=== PATIENT | female | born 1985 | race Caucasian/White ===

== ENCOUNTER 2017-10-14 20:27 | Emergency (ER) | payer BC ==
--- NOTE | 2017-10-14 20:41 | UC ---
Dizzy HPI HPI Summary: The patient is a 32 y/o F presenting to [facility] c/o blurred vision and slurred speech with dizziness and lightheadedness at approximately 19:45 tonight. 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 Her left eye was alright, but then she was going to talk to someone else she was working with and was unable to speak correctly. She did not have any other weakness or numbness, CP, or SOB , but she felt anxious. Her symptoms only last minutes as her vision and speech are back to normal. She has not had previous episodes with these symptoms. She has hx of anxiety. She does not take any medications. - History Of Current Complaint Stated Complaint: BLURRED SPEECH,VISION BLURRED Time Seen by Provider: 10/14/17 20:34 Hx Obtained From: Patient Onset/Duration: Sudden Onset, Lasting Minutes, Resolved Timing: Minutes Pain Scale Used: 0-10 Numeric Character: Lightheaded, Dizzy Aggravating Factor(s): Nothing Alleviating Factor(s): Nothing Associated Signs And Symptoms: Positive: Negative - weakness, numbness, Visual Changes - blurred vision. Negative: Chest Pain, SOB - Allergies/Home Medications Allergies/Adverse Reactions: Allergies Allergy/AdvReac Type Severity Reaction Status Date / Time No Known Allergies Allergy Verified 10/14/17 20:43 Home Medications: Home Medications NK [No Home Medications Reported] 10/14/17 [History Confirmed 10/14/17] PMH/Surg Hx/FS Hx/Imm Hx Other Endocrine History: NEGATIVE: diabetes Other Cardiovascular History: NEGATIVE: HTN Psychological History: Anxiety - Family History Known Family History: Positive: Diabetes Review of Systems Eyes: Blurred Vision - right eye Respiratory: Other - NEGATIVE: SOB Cardiovascular: Other - NEGATIVE: CP Neurological: Other - POSITIVE: slurred speech, dizzy, lightheaded; NEGATIVE: weakness, numbness Psychological: Anxious All Other Systems Reviewed And Are Negative: Yes Physical Exam - Summary Physical Exam Summary: General: well-appearing, no pain distress Skin: warm, color reflects adequate perfusion, dry Head: normal Eyes: EOMI, MUMTAZ ENT: normal Neck: supple, nontender Respiratory: CTA, breath sounds present Cardiovascular: RRR Abdomen: soft, nontender Bowel: present Musculoskeletal: normal, strength/ROM intact Neurological: sensory/motor intact, A&O x3 Psychological: affect/mood appropriate Triage Information Reviewed: Yes Vital Signs Reviewed: Yes Diagnostics - EKG EKG Comments: 20:29 Cardiac Rate: NL - 96 BPM Cardiac Rhythm: Sinus: Normal Ectopy: None ST Segment: Normal Dizzy Course/Dx - Course Course Of Treatment: Medications reviewed. Allergies noted. fs bs 91. TIME OF ONSET OF RIGHT SIDED BLURRED VISION AND DIFFICULTY OF SPEECH 19:45. DURATION OF SX 15-20 MINUTES. NO NEUROLOGIC DEFICIT IN CLINIC. TRANSFERED BY AMBULANCE TO EMERGENCY DEPARTMENT. - Differential Dx/Diagnosis Provider Diagnoses: TRANSIENT BLURRED VISION AND EXPRESSIVE APHASIA Discharge - Sign-Out/Discharge Documenting (check all that apply): Patient Departure - Patient will be transferred to [facility]. - Discharge Plan Condition: Stable Disposition: TRANS HIGHER LVL OF CARE FAC Referrals: Bernard Decker MD [Primary Care Provider] - - Billing Disposition and Condition Condition: STABLE Disposition: Trans Higher Lvl of Care Fac Attestation Statement Scribe Attestation: This is clay Purcell documenting for attending Dr. Polo Sylvester MD. User Type: Provider with Scribe Provider Attestation: The documentation recorded by the scribe accurately reflects the service I personally performed and the decisions made by me.
[2017-10-14 20:43] VITALS: BP 147/85
== END 2017-10-14 21:00 | disposition short-term general hospital (02) ==
LOC: UCEAST 20:27
DX: H53.8 Other visual disturbances (principal); R47.01 Aphasia; R47.81 Slurred speech; R42 Dizziness and giddiness; R20.0 Anesthesia of skin
CPT/HCPCS: 93005; 99203; G0463

== ENCOUNTER 2017-10-14 21:18 | Observation (INO) | payer BC ==
--- NOTE | 2017-10-14 22:31 | ED ---
Complex/Multi-Sys Presentation - HPI Summary HPI Summary: This is clay Campos documenting for attending Ace Pierson MD. This patient is a 32 year old F BIBA to [facility] with a chief complaint of right eye peripheral blurry vision that began at 1930. 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 All sx resolved after 45 minutes. The patient rates the pain 0/10 in severity. Patient reports light headedness. Patient denies BENNETT and trouble ambulating. When these occurred she saw the nurse at her work and she was given something to raise her blood sugar. No similar sx in the past. LNMP was one month ago and should begin in 3 days. Pt believes she had possible low blood glucose but no hx of DM. - History Of Current Complaint Chief Complaint: EDAltMentalStatus Time Seen by Provider: 10/14/17 21:30 Hx Obtained From: Patient Onset/Duration: Lasting Minutes - 45, Resolved Timing: Intermittent, Lasting: - 45 min Severity Currently: None Severity Initially: Mild Associated Signs And Symptoms: Positive: Other - blurred vision and trouble speaking - Allergies/Home Medications Allergies/Adverse Reactions: Allergies Allergy/AdvReac Type Severity Reaction Status Date / Time sulfamethoxazole Allergy Hives Verified 10/14/17 21:39 [From Bactrim] trimethoprim [From Bactrim] Allergy Hives Verified 10/14/17 21:39 PMH/Surg Hx/FS Hx/Imm Hx Endocrine/Hematology History: Denies: Hx Blood Transfusions, Hx Diabetes Cardiovascular History: Denies: Hx Auto Implanted Cardiovert Defib, Hx Cardiomegaly, Hx Deep Vein Thrombosis Respiratory History: Denies: Hx Chronic Obstructive Pulmonary Disease (COPD), Hx Pneumonia History: Denies: Hx Benign Prostatic Hyperplasia Sensory History: Denies: Hx Legally Blind, Hx Deafness Opthamlomology History: Denies: Hx Legally Blind Psychiatric History: Denies: Hx Community Mental Health Tx Infectious Disease History: Yes Infectious Disease History: Denies: Traveled Outside the [place] in Last 30 Days - Family History Known Family History: Positive: Diabetes - Social History Occupation: Employed Full-time Alcohol Use: None Substance Use Type: Reports: None Smoking Status (MU): Never Smoked Tobacco Review of Systems Positive: Blurred Vision - right eye Positive: Other - "thick tongue" Neurological: Negative - trouble ambulating , Other - light headedness Positive: Slurred Speech - w/ aphasia . Negative: Headache All Other Systems Reviewed And Are Negative: Yes Physical Exam - Summary Physical Exam Summary: VITAL SIGNS: Reviewed. GENERAL: Patient is a well-developed and nourished FEMALE who is lying comfortable in the stretcher. Patient is not in any acute respiratory distress. HEAD AND FACE: No signs of trauma. No ecchymosis, hematomas or skull depressions. No sinus tenderness. EYES: PERRLA, EOMI x 2, No injected conjunctiva, no nystagmus. EARS: Hearing grossly intact. Ear canals and tympanic membranes are within normal limits. MOUTH: Oropharynx within normal limits. NECK: Supple, trachea is midline, no adenopathy, no JVD, no carotid bruit, no c- spine tenderness, neck with full ROM. CHEST: Symmetric, no tenderness at palpation LUNGS: Clear to auscultation bilaterally. No wheezing or crackles. CVS: Regular rate and rhythm, S1 and S2 present, no murmurs or gallops appreciated. ABDOMEN: Soft, non-tender. No signs of distention. No rebound no guarding, and no masses palpated. Bowel sounds are normal. EXTREMITIES: FROM in all major joints, no edema, no cyanosis or clubbing. NEURO: Alert and oriented x 3. No acute neurological deficits. Speech is normal and follows commands. SKIN: Dry and warm Triage Information Reviewed: Yes Vital Signs On Initial Exam: Initial Vitals Temp Pulse Resp BP Pulse Ox 98.9 F 89 16 128/86 100 10/14/17 21:22 10/14/17 21:22 10/14/17 21:22 10/14/17 21:22 10/14/17 21:22 Vital Signs Reviewed: Yes Diagnostics - Vital Signs Vital Signs Temp Pulse Resp BP Pulse Ox 10/14/17 21:55 94 16 119/69 100 10/14/17 21:25 93 15 128/86 100 10/14/17 21:23 96 100 10/14/17 21:22 98.9 F 89 16 128/86 100 - Laboratory Result Diagrams: 10/14/17 22:29 10/14/17 22:29 Lab Statement: Any lab studies that have been ordered have been reviewed, and results considered in the medical decision making process. - CT CTA head CT Interpretation Completed By: Radiologist - normal CT head ED physician has reviewed this radiology report. CT head CT Interpretation Completed By: Radiologist - normal CT head ED physician has reviewed this radiology report. - EKG 22:28 Cardiac Rate: Tachycardia EKG Rhythm: Sinus Tachycardia - at 102 BPM EKG Interpretation: Normal axis. Normal interval. No ischemic changes Complex Multi-Symp Course/Dx Assessment/Plan: This patient is a 32 year old F BIBA to [facility] with a chief complaint of right eye peripheral blurry vision that began at 1930. 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 All sx resolved after 45 minutes. The patient rates the pain 0/10 in severity. Patient reports light headedness. Patient denies BENNETT and trouble ambulating. When these occurred she saw the nurse at her work and she was given something to raise her blood sugar. No similar sx in the past. LNMP was one month ago and should begin in 3 days. Pt believes she had possible low blood glucose but no hx of DM. An EKG reveals sinus tachycardia. CT Head reveals, per radiologist, normal CT head. Test results with no significant abnormalities. UA obtained. In the ED course the patient was given ASA. We discussed patient care with Dr. Spaulding and they have accepted the patient for admission. Patient will be admitted for a TIA. The patient is agreeable with this plan. - Diagnoses Provider Diagnoses: TIA (transient ischemic attack) - Physician Notifications Discussed Care Of Patient With: Melida Spaulding Time Discussed With Above Provider: 12:55 Instructed by Provider To: Admit As Inpatient Discharge - Sign-Out/Discharge Documenting (check all that apply): Patient Departure - admitted - Discharge Plan Condition: Fair Disposition: ADMITTED TO [facility] Referrals: Bernard Decker MD [Primary Care Provider] - Attestation Statement Scribe Attestation: This is clay Campos documenting for attending Ace Pierson MD. User Type: Provider with Scribe Provider Attestation: The documentation recorded by the scribe accurately reflects the service I personally performed and the decisions made by me.
[2017-10-14 22:42] LABS: ABS Basophils 0.1 10^3/ul (0-0.2); ABS Eosinophils 0.4 10^3/ul (0-0.6); ABS Lymphocytes 2.7 10^3/ul (1.0-4.8); ABS Monocytes 0.6 10^3/ul (0-0.8); ABS Nucleated RBC 0 10^3/ul; Eosinophil % 4.4 % (0-6); Hematocrit 40 % (35-47); Hemoglobin 13.5 g/dl (12.0-16.0); Mean Corpuscular HGB Conc 34 g/dl (31-36); Mean Corpuscular Hemoglobin 31 pg (27-31); Mean Corpuscular Volume 90 fL (80-97); Nucleated Red Blood Cells % 0; Platelet Count 399 10^3/ul (150-450); Red Blood Count 4.41 10^6/ul (4.00-5.40); Red Cell Distribution Width 13 % (10.5-15); White Blood Count 8.7 10^3/ul (3.5-10.8)
[2017-10-14 22:48] LABS: Urine Appearance Clear; Urine Blood Negative (Negative); Urine Color Yellow; Urine Ketones Negative (Negative); Urine Protein Negative (Negative); Urine Red Blood Cell Trace(0-2/hpf) (Absent); Urine Specific Gravity 1.009 (1.010-1.030); Urine Urobilinogen Negative (Negative); Urine White Blood Cell Trace(0-5/hpf) (Absent)
[2017-10-14 22:52] LABS: INR 1.02 (0.77-1.02)
[2017-10-14 23:00] LABS: EGFR Non-African American 97.6 (>60)
[2017-10-14] MEDS ORDERED: Iohexol 350* (CONTRAST) 500 ML MDV IV ONE (23:20)
--- NOTE | 2017-10-15 00:46 | RAD ---
EXAM: CT Angiography Head With Intravenous Contrast CLINICAL HISTORY: 32 years old, female; Signs and symptoms; Speech disturbance and weakness; Slurred speech; Additional info: TIA TECHNIQUE: Axial computed tomographic angiography images of the head with intravenous contrast using CT angiography protocol. 3D and MIP reconstructed images were created and reviewed. COMPARISON: No relevant prior studies available. FINDINGS: Right internal carotid artery: No acute findings. Intracranial segment is patent with no significant stenosis. No aneurysm. Right anterior cerebral artery: Unremarkable. No occlusion or significant stenosis. No aneurysm. Right middle cerebral artery: Unremarkable. No occlusion or significant stenosis. No aneurysm. Right posterior cerebral artery: Unremarkable. No occlusion or significant stenosis. No aneurysm. Right vertebral artery: Unremarkable as visualized. Left internal carotid artery: No acute findings. Intracranial segment is patent with no significant stenosis. No aneurysm. Left anterior cerebral artery: Unremarkable. No occlusion or significant stenosis. No aneurysm. Left middle cerebral artery: Unremarkable. No occlusion or significant stenosis. No aneurysm. Left posterior cerebral artery: Unremarkable. No occlusion or significant stenosis. No aneurysm. Left vertebral artery: Unremarkable as visualized. Basilar artery: Unremarkable. No occlusion or significant stenosis. No aneurysm. IMPRESSION: Normal head CTA. EXAM: CT Angiography Neck With Intravenous Contrast CLINICAL HISTORY: 32 years old, female; Signs and symptoms; Speech disturbance and weakness; Slurred speech; Additional info: TIA TECHNIQUE: Axial computed tomographic angiography images of the neck with intravenous contrast using CT angiography protocol. 3D and MIP reconstructed images were created and reviewed. COMPARISON: No relevant prior studies available. FINDINGS: VASCULATURE: Right common carotid artery: Unremarkable. No significant stenosis. No dissection or occlusion. Right internal carotid artery: Unremarkable. Extracranial segment is patent with no significant stenosis. No dissection or occlusion. Right external carotid artery: Unremarkable. No occlusion. Right vertebral artery: Unremarkable. No significant stenosis. No dissection or occlusion. Left common carotid artery: Unremarkable. No significant stenosis. No dissection or occlusion. Left internal carotid artery: Unremarkable. Extracranial segment is patent with no significant stenosis. No dissection or occlusion. Left external carotid artery: Unremarkable. No occlusion. Left vertebral artery: Unremarkable. No significant stenosis. No dissection or occlusion. NECK: Bones/joints: No acute fracture. No dislocation. Soft tissues: Unremarkable as visualized. No mass. CAROTID STENOSIS REFERENCE USING NASCET CRITERIA: % ICA stenosis = (1 - narrowest ICA diameter/diameter of distal cervical ICA) x 100. Mild - <50% stenosis. Moderate - 50-69% stenosis. Severe - 70-94% stenosis. Near occlusion - 95-99% stenosis. Occluded - 100% stenosis. IMPRESSION: Normal neck CTA. I have reviewed the images and the accompanying report and agree with the findings. Additionally the left lobe of the thyroid demonstrates a hypodense nodule in the lower pole. The lung apices demonstrate no focal nodules. Scattered lymph nodes are noted along the soft tissues of the neck. Images of the CTA of the head was reviewed and I essentially agree with the report provided above.
[2017-10-15] MEDS ORDERED: Aspirin TAB* 325 MG PO ONE (00:54)
--- NOTE | 2017-10-15 03:36 | HP ---
CC: Dr. Bernard Decker* HISTORY AND PHYSICAL: DATE OF ADMISSION: 10/15/17 PRIMARY CARE PROVIDER: To be established with Dr. Bernard Decker. CHIEF COMPLAINT: Difficulty with speech. HISTORY OF PRESENT ILLNESS: Ms. Johnston is a 32-year-old female who has a history of morbid obesity with a BMI of greater than 50, who presents to the emergency room with complaints of blurry vision and difficult speech. 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 She states the left eye was completely fine when she closed her right eye. The patient states that she had like a crescent-shaped area of blurriness in the peripheral vision. She states that she had LASIK surgery in January 2017 and thought perhaps it was just related to the dry eyes. She tried some eyedrops, initially noted some slight improvement, but then the blurry vision came back. The patient then states that when she was talking, she noted that her words were coming out jumbled. The words themselves were not slurred, though when she tried to put sentences together, the words were out of order. The patient then began to feel anxious. She states that when she feels anxious , she will text with her mom, which typically calms her down. When trying to text her mom, she noted that the same thing was happening with her words where they were out of order. The patient found a nurse to check her vital signs. Her blood pressure was reportedly good at 122/65. She thought perhaps it was related to hypoglycemia, so the nurse gave her some Ensure to drink. The patient then was able to walk without any issues to urgent care. She did feel mildly lightheaded, but she also states that she was feeling quite anxious by this time. The patient states that the onset of symptoms was around 7:30 p.m. She believes the symptoms in total lasted for about 45 minutes. At this point, she is completely back to normal. PAST MEDICAL HISTORY: Anxiety/depression. PAST SURGICAL HISTORY: LASIK. MEDICATIONS: None. ALLERGIES: BACTRIM. FAMILY HISTORY: Mom is living. She is 61, has a history of hyperlipidemia and psoriasis. Dad is also living. He is 59, he has a history of hypertension, hyperlipidemia, and trigeminal neuralgia. SOCIAL HISTORY: The patient is a nonsmoker. She does not drink alcohol. She does not use recreational drugs. 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 She is not . She has no children. Her dad, Tyrone, is her healthcare proxy. REVIEW OF SYSTEMS: A complete 11-system review of systems is obtained. Pertinent positives and negatives are as per HPI and otherwise negative. PHYSICAL EXAMINATION GENERAL: The patient is a well-developed, morbidly obese, young female, seen sitting up in the stretcher, in no acute distress. VITAL SIGNS: Blood pressure 117/71, pulse 103, respirations 19, temp 98.9, O2 sat 97% on room air. HEENT: Pupils are equal and round. Extraocular muscles are intact. Oropharynx is clear. Oral mucosa is moist. NECK: There is no submandibular, cervical, or supraclavicular adenopathy. Thyroid is not enlarged. No thyroid nodules are noted. PULMONARY: Lungs are clear to auscultation bilaterally. CARDIAC: Normal S1, S2. Regular rate and rhythm. I do not appreciate any murmurs. There is no lower extremity edema. ABDOMEN: Bowel sounds are present. Abdomen is obese, soft, nontender, and nondistended. MUSCULOSKELETAL: There is no cyanosis or clubbing of the digits. There is full active range of motion of all 4 extremities. SKIN: Warm and dry. There are no rashes. NEUROLOGIC: Cranial nerves II through XII are grossly intact. Sensation is intact to light touch throughout. Strength is 5/5 and symmetric in both upper and lower extremities bilaterally. The patient's speech is clear and fluent. The patient is able to ambulate with a steady fluid gait. PSYCH: The patient is alert. She is oriented x3. Affect appears appropriate. DIAGNOSTIC STUDIES/LAB DATA: Labs: WBC 8.7, hemoglobin 13.5, hematocrit 40, platelets 399. INR 1.02. Sodium 136, potassium 3.6, chloride 105, CO2 of 24, BUN 14, creatinine 0.7, glucose 84, calcium 8.8. Bilirubin 0.4, AST 19, ALT 21 , alk phos 93. Troponin 0, albumin 4.3. Urinalysis reveals specific gravity of 1.009 and trace leukocyte esterase. EKG reveals normal sinus rhythm without any acute ST-T wave abnormality. CTA head and neck reported to be normal. ASSESSMENT AND PLAN: Ms. Johnston is a 32-year-old morbidly obese female with only a history of anxiety and depression, who presents to the emergency room with complaints of sudden onset of blurry vision via the right eye and aphasia. 1. Possible transient ischemic attack. The patient's symptoms of blurry vision and aphasia could represent transient ischemic attack; however, the patient is quite young for this. The patient's vision only being affected by the right eye seems unlikely to be secondary to transient ischemic attack, however at this point the patient will be admitted and evaluated for such condition. The patient did not get a plain CT of the brain prior to her CTA head and neck. This will be obtained 6 hours after the CTA, which will be about 6:00 this morning. This is due to the fact that the patient had contrast. The patient will have a lipid panel and hemoglobin A1c obtained in the morning. She will continue on a baby aspirin for now. I will touch base with Neurology later this morning to ask about obtaining an MRI and to have a consultation performed. Of note, the patient's blood sugar was only 84 in the emergency room. She does state that she had an Ensure around 7:30 to 8:00 p.m. I would expect perhaps this would have been higher. Perhaps she was hypoglycemic though when she arrived her urgent care, her blood sugar was 91 at that point. The blood sugar of 91 makes hypoglycemia seem still the possibility as again she has had Ensure just right before then. With the Ensure , I would expect that her blood sugar to be higher if she started out at the normal range. 2. Morbid obesity. The patient states that she is working on diet and exercise. We will continue to encourage this. 3. DVT prophylaxis. According to Adult Thrombosis Prophylaxis Risk Assessment Guide, the patient has a total risk factor score of 1 making her low risk. Ambulation will be utilized to deep venous thrombosis prophylaxis. 4. Code status is full. TIME SPENT: Fifty-five minutes was spent admitting this patient. [id number]/[facility] #: [id number] RADHA
--- NOTE | 2017-10-15 03:41 | RAD ---
EXAM: CT Head Without Intravenous Contrast CLINICAL HISTORY: 32 years old, female; Signs and symptoms; Weakness, extremity; Right; Additional info: ? TIA TECHNIQUE: Axial computed tomography images of the head/brain without intravenous contrast. COMPARISON: CTA HD/NK CTA HEAD/NECK 2017-10-14 23:33 FINDINGS: Brain: Unremarkable. No hemorrhage. No significant white matter disease. No edema. Ventricles: Unremarkable. No ventriculomegaly. Bones/joints: Unremarkable. No acute fracture. Soft tissues: Unremarkable. Sinuses: Unremarkable as visualized. No acute sinusitis. Mastoid air cells: Unremarkable as visualized. No mastoid effusion. IMPRESSION: No evidence for acute intracranial abnormality.
[2017-10-15] MEDS ORDERED: Perflutren Lipid Microsphere* 3 ML VIAL ONE (07:51)
--- NOTE | 2017-10-15 08:06 | PN ---
Subjective Date of Service: 10/15/17 Interval History: Patient denies any complaints . reports that vision has returned to baseline, no visual complaints at this time. Denies BENNETT or dizziness. Denies chest pain or shortness of breath. Denies abd pain. n/v/d. denies fever or chills Family History: Unchanged from Admission Social History: Unchanged from Admission Past Medical History: Unchanged from Admission Objective Active Medications: Aspirin (Aspirin 81 Mg Chew Tab*) 81 mg PO DAILY ADAN Vital Signs - 8 hr 10/15/17 10/15/17 10/15/17 00:26 00:27 00:55 Temperature Pulse Rate 107 112 105 Respiratory 29 13 Rate Blood Pressure 135/84 122/77 (mmHg) O2 Sat by Pulse 96 96 98 Oximetry 10/15/17 10/15/17 10/15/17 01:00 01:25 01:59 Temperature Pulse Rate 104 102 Respiratory 15 19 23 Rate Blood Pressure 117/71 140/77 (mmHg) O2 Sat by Pulse 97 97 Oximetry 10/15/17 10/15/17 10/15/17 02:01 02:25 02:55 Temperature Pulse Rate 111 109 101 Respiratory 16 16 17 Rate Blood Pressure 126/84 108/65 (mmHg) O2 Sat by Pulse 97 96 96 Oximetry 10/15/17 10/15/17 10/15/17 03:00 03:02 03:18 Temperature 98.6 F Pulse Rate 92 101 Respiratory 21 18 18 Rate Blood Pressure 108/65 (mmHg) O2 Sat by Pulse 96 98 Oximetry 10/15/17 10/15/17 10/15/17 03:39 05:02 07:07 Temperature 98.1 F 97.8 F Pulse Rate 103 103 Respiratory 18 Rate Blood Pressure 145/84 124/81 (mmHg) O2 Sat by Pulse 98 98 99 Oximetry Oxygen Devices in Use Now: None Appearance: alert, sitting on the edge of the bed. no acute distress Eyes: No Scleral Icterus Ears/Nose/Mouth/Throat: Clear Oropharnyx, Mucous Membranes Moist Neck: NL Appearance and Movements; NL JVP, Trachea Midline Respiratory: Symmetrical Chest Expansion and Respiratory Effort, Clear to Auscultation Cardiovascular: NL Sounds; No Murmurs; No JVD, No Edema Abdominal: NL Sounds; No Tenderness; No Distention Extremities: No Edema, No Clubbing, Cyanosis Skin: No Rash or Ulcers, No Nodules or Sclerosis Neurological: Alert and Oriented x 3, - - cranial nerves 2- 12 intact , tongue midline, smile equal , speech is clear Nutrition: Taking PO's Result Diagrams: 10/14/17 22:29 10/14/17 22:29 Microbiology and Other Data: Microbiology 10/15/17 05:15 Nasal Screen MRSA (PCR) - Final Nasal Mrsa Not Detected Assess/Plan/Problems-Billing Assessment: - Patient Problems (1) Blurred vision, right eye Status: Acute Code(s): H53.8 - OTHER VISUAL DISTURBANCES SNOMED Code(s): 407770891 Comment: -will continue workup to R/o TIA -CTA head - negative -CT brain negative - MRI - negative -Continue ASA Neurology Consulted - VEP - study completed - WNL recommeded Hypercoag panel ordered and obtained prior to discharge will start on statin at discharge will need follow up with neurology in 2-3 weeks nutrition consult as an outpatient will need evaluation for sleep apnea (2) Anxiety Status: Acute Code(s): F41.9 - ANXIETY DISORDER, UNSPECIFIED SNOMED Code(s) : 04463581 Comment: Not currently on medications continue supportive care (3) Obesity Status: Acute Code(s): E66.9 - OBESITY, UNSPECIFIED SNOMED Code(s): 978839889 Comment: nutrition consult as an outpatient (4) DVT prophylaxis Status: Acute Code(s): CDP4197 - SNOMED Code(s): 890641290 Comment: ambulation (5) Full code status Status: Acute Code(s): Z78.9 - OTHER SPECIFIED HEALTH STATUS SNOMED Code(s) : 590767692 Status and Disposition: discharge
--- NOTE | 2017-10-15 11:06 | ECHO ---
Patient: JASON MCKEON [facility] Rec#: [id number] : 1985 Date: 10/15/2017 Age: 32y Height: 168 cm / 66.1 in Weight: 151 kg / 332.8 lbs Sex: F BSA: 2.49 Room#: [facility] Admit Date#: 10/15/2017 Type: Inpatient Referring: Melida Spaulding DO Reading: Catracho Garcia DO [employer] Lining: Mayi Arenas RDCS,RDMS CC: Bernard Decker MD Transthoracic Echocardiogram Indication: TIA BP: 145/84 HR: 78 Rhythm: NSR Findings History: Previously healthy Technical Comments: The study quality is fair. Left Ventricle: The left ventricular chamber size is normal. There is no left ventricular hypertrophy. Global left ventricular wall motion and contractility are within normal limits. There is normal left ventricular systolic function. The estimated ejection fraction is 60-65%. Normal left ventricular diastolic filling is observed. Left Atrium: The left atrial chamber size is normal. Right Ventricle: The right ventricular chamber size and systolic function are within normal limits. Right Atrium: The right atrial cavity size is normal. Aortic Valve: The aortic valve is trileaflet. Systolic excursion of the aortic valve is normal. There is no evidence of aortic regurgitation. There is no evidence of aortic stenosis. Mitral Valve: The mitral valve leaflets appear normal. There is no evidence of mitral regurgitation. There is no evidence of mitral stenosis. Tricuspid Valve: The tricuspid valve leaflets are normal. There is trace tricuspid regurgitation. Unable to estimate the right ventricular systolic pressure. Pulmonic Valve: The pulmonic valve structure is not well visualized. There is no evidence of pulmonic valve thickening. There is no evidence of pulmonic regurgitation. Pericardium: There is no significant pericardial effusion. Aorta: The aortic root appears normal. There is no dilatation of the aortic arch. Pulmonary Artery: The main pulmonary artery is not well visualized. Venous: The inferior vena cava appears normal in size. There is a greater than 50% respiratory change in the inferior vena cava dimension. Contrast: Definity was used to optimize study. A total of 2 ml was used Conclusions The left ventricular chamber size is normal. There is no left ventricular hypertrophy. Global left ventricular wall motion and contractility are within normal limits. There is normal left ventricular systolic function. The estimated ejection fraction is 60-65%. The left atrial chamber size is normal. The right ventricular chamber size and systolic function are within normal limits. No significant valvular abnormalities noted Definity was used to optimize study. None prior for comparison at time of interpretation Measurements Name Value Normal Range RVIDd (AP) 2D 2.4 cm (0.9 - 2.6) RVDdMajor (2D) 3 cm (2.2 - 4.4) RAd ISD 4CH 5.2 cm (3.4 - 4.9) RA (A4C)W 3.5 cm (2.9 - 4.6) IVSd (2D) 1 cm (0.6 - 1) LVPWd (2D) 1 cm (0.6 - 1) LVIDd (2D) 4.9 cm (3.6 - 5.4) LVIDs (2D) 3.4 cm - LV FS (2D) 31 % (25 - 45) Aortic Annulus 2 cm (1.4 - 2.6) Ao root diameter (2D) 2.7 cm (2.1 - 3.5) Ascending Ao 2.6 cm (2.1 - 3.4) Aortic arch 2.2 cm (1.8 - 3.4) LA dimension (AP) 2D 3.8 cm (2.3 - 3.8) LAd ISD 4CH 5.5 cm (2.9 - 5.3) LA ISD 4CH W 3.5 cm (2.5 - 4.5) Name Value Normal Range LA ESV BP (A/L) index 19 ml/m2 - Name Value Normal Range MV E-wave Vmax 1 m/sec - MV deceleration time 193 msec - MV A-wave Vmax 0.6 m/sec - MV E:A ratio 1.9 ratio - LV septal e' Vmax 0.12 m/sec - LV lateral e' Vmax 0.2 m/sec - LV E:e' septal ratio 9 ratio - LV E:e' lateral ratio 5 ratio - Name Value Normal Range AV Vmax 1.5 m/sec - AV VTI 26 cm - AV peak gradient 9 mmHg - AV mean gradient 5 mmHg - LVOT Vmax 1 m/sec - LVOT VTI 20 cm - LVOT peak gradient 4 mmHg - LVOT mean gradient 2 mmHg - SAIDA Vmax 1.2 m/sec - Name Value Normal Range RAP 8 mmHg - IVC diameter 2.1 cm - Name Value Normal Range PV Vmax 0.9 m/sec - PV peak gradient 3.2 mmHg -
--- NOTE | 2017-10-15 12:32 | RAD ---
INDICATION: TIA. COMPARISON: Comparison is made with a prior CT of the brain from October 15, 2017. TECHNIQUE: Sagittal T1, axial T1, T2, susceptibility, FLAIR and diffusion weighted images were obtained. FINDINGS: The ventricles, cisterns and sulci appear to be within normal limits. No significant focal abnormality or mass effect is seen. No areas of restricted diffusion are present. There is no evidence for infarct or hemorrhage. The visualized portion of the paranasal sinuses and mastoid air cells appear clear. IMPRESSION: NEGATIVE EXAM.
[2017-10-15 17:21] VITALS: BP 147/97
[2017-10-16] MEDS ORDERED: Aspirin 81 mg CHEW TAB* 81 MG TAB.CHEW PO SCH (09:00)
--- NOTE | 2017-10-17 15:54 | DS ---
DISCHARGE SUMMARY: DATE OF ADMISSION: 10/15/17 DATE OF DISCHARGE: 10/15/17 ATTENDING PHYSICIAN: Akilah Gee MD * (dictated by Bela Merritt NP) PRIMARY CARE PROVIDER: Dr. Bernard Decker PRIMARY DIAGNOSES: 1. Possible transient ischemic attack. 2. Blurred vision. SECONDARY DIAGNOSIS: Morbid obesity. STUDIES COMPLETED WHILE IN THE HOSPITAL: She had a CTA of the head on . Radiologist impression: Normal CTA of the head. She had a CT of the brain on 10/15/17. Radiologist impression: No evidence of acute intracranial abnormality. She had a transthoracic echocardiogram on 10/15/17. Conclusion: The left ventricular chamber size is normal. There is no left ventricular hypertrophy. Global ventricular wall motion and contractility are within normal limits. There is normal left ventricular systolic function. The estimated ejection fraction is 60% to 65%. The left atrial chamber size is normal. The right ventricular chamber size and systolic function is within normal limits. No significant valvular abnormalities are noted. She had an MRI of the brain on 10/15/17, which was negative. DISCHARGE MEDICATIONS: New home medications: 1. Aspirin 81 mg p.o. daily. 2. Atorvastatin 20 mg p.o. daily. HISTORY OF PRESENT ILLNESS AND HOSPITAL COURSE: Ms. Johnston is a 32-year-old female with a past medical history significant for morbid obesity with BMI of greater than 50, who presented to the emergency room with complaints of blurred vision and difficulty with speech. 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 She said that the left eye was completely fine. She closed her right eye. The patient states that there was like a crescent shaped area of blurriness in the peripheral vision. She states that she also had LASIK surgery in January 2017 and thought perhaps that was just due to dry eyes. She tried some eye drops, initially noted some improvement, but then the blurry vision came back. The patient states that when she was talking she noted her words were jumbled. The words themselves were not slurred, but though when she tried to put sentences together, the words were out of order. She then started to feel anxious. Generally when she feels anxious, she texts her mom. Her symptoms did not improve. She did seek the nurse and had vital signs taken at [place]. Her vital signs were good. Her blood pressure at that time was 122/65. She was able to walk without any issues and went to Urgent Care. She did feel mildly lightheaded, but states that she was also feeling very anxious at that time. She reports that the onset of these symptoms occurred at 07:30 a.m. on the day of admission and believes that the symptoms lasted approximately 45 minutes. At the point of exam in the emergency room, her symptoms had totally resolved. While in the hospital, she had an MRI of the brain, a CTA of the head, a CT of the brain. She had a VEP study that was read by Dr. Faust and verbal communication was within normal limits. She was monitored on telemetry. She had no arrhythmias noted on the monitor. On the day of discharge, she is alert and oriented. She has no visual complaints or blurriness in her peripheral vision. She feels that she is at baseline. Her speech is clear. She is able to articulate her words without difficulty. She was seen and consulted also by Neurology during this hospitalization who felt that her symptoms were consistent with a TIA and recommended that she be placed on a statin and aspirin and to follow up with Neurology in 3 to 4 weeks. At this point, Ms. Johnston is stable for discharge home. Vital signs are as follows: Temperature was 97.7, heart rate is 82, respiration 12, O2 saturation was 99%. Blood pressure was 147/97. DISCHARGE PLAN: Ms. Johnston will be discharged home. Activity as tolerated. 1. Possible TIA. She should continue on aspirin 81 mg p.o. daily and atorvastatin 20 mg p.o. daily. She should follow up with Neurology in 3 to [address] not drive until she is cleared by her primary care provider. She should follow up with her primary care provider in 4 to 7 days. She should also have an outpatient sleep study referral and a referral to a client manager [employer]. She is to follow up with Dr. Faust in 2 to 3 weeks. She needs to call the office for an appointment. She needs to follow up with her primary eye doctor this week for an ophthalmology exam. 2. Obesity. She should follow up with her primary care provider for referral to certified medication aide/client manager [employer] for further help and management of her weight. Followup. The patient should follow up with her primary care provider in 4 to 7 days. She should follow up with Dr. Faust, neurologist in 2 to 3 weeks. She needs to call the office for an appointment. This is a summarization of her hospitalization. If further details are needed, please obtain the entire medical record. The patient was instructed to return to the emergency room for any chest pain, headaches, slurred speech, weakness on 1 side or any other worsening symptoms. TIME SPENT: Time spent on this discharge was approximately 60 minutes, greater than half that time was spent with the patient discussing discharge plans and instructions. CONDITION ON DISCHARGE: Stable. I have discussed with my attending, Dr. Akilah Gee, she is in agreement with my plan. BELA MERRITT, JEN [id number]/CPS #: [id number] MTDFlaco
[2017-10-19 18:31] LABS: Prothrombin 20210 Mutation Negative (Negative)
== END 2017-10-15 17:51 | disposition home or self-care (01) ==
LOC: ED 21:18 → MEDTELE 10-15 01:53
PROVIDERS: ADMIT Hospitalist; ATTEND Hospitalist
DX: H53.8 Other visual disturbances (principal); R47.81 Slurred speech; E66.01 Morbid (severe) obesity due to excess calories; Z79.82 Long term (current) use of aspirin; F41.9 Anxiety disorder, unspecified
CPT/HCPCS: 36415; 70450; 70496; 70498; 70551; 80053; 80061; 81003; 81015; 81240; 81241; 83036; 83090; 84443; 84484; 84702; 85025; 85300; 85303; 85306; 85307; 85610; 85613; 85730; 86147; 87086; 87641; 93005; 93306; 95930; 99284; C8929; G0378; Q9967

== ENCOUNTER 2017-11-04 12:39 | Emergency (ER) | payer BC ==
--- OUTSIDE RECORDS SUMMARY | 2017-11-04 12:53 | XMS REPORT | Continuity of Care Document ---
:1985 External Reference #:[id number] Author Name Hanna Hall Care Team Providers Name Role Phone Bernard Decker MD Care Team Information Stock Letterer Unavailable Bernard Decker MD Primary Care Physician Unavailable Payers Type Date Identification Numbers Payment Provider Subscriber Policy Number: [id number] Independent Health Plan Jason Johnston PayID: [id number] [place] [address] Advance Directives Description No Information Available Problems Description No Information Family History Date Family Member(s) Problem(s) Comments Father Hypertension Father Glaucoma Father Trigenminal neuralgia Mother Hyperlipidemia Mother 2 heart valves repaired First Brother No Current Problems First Sister No Current Problems Second Sister No Current Problems Third Sister No Current Problems Social History Type Date Description Comments Sex Unknown ETOH Use Denies alcohol use Tobacco Use Start: Unknown Patient has never smoked Allergies, Adverse Reactions, Alerts Date Description Reaction Status Severity Comments 10/22/2017 Bactrim Active Medications Medication Date Status Form Strength Qnty SIG Indications Ordering Provider Atorvastatin Active Tablets 20mg 90tabs 1 by Bernard Decker, Calcium 018 mouth evening Aspirin Active Chewtabs 81mg 90units 1 by Bernard Decker Childrens 018 mouth every day Immunizations Description No Information Available Vital Signs Date Vital Result Comment 10/22/2017 4:09pm BP Systolic 140 mmHg BP Diastolic 82 mmHg Height 66 inches 5'6" Weight 329.00 lb BMI (Body Mass Index) 53.1 kg/m2 Results Test Date Facility Test Result H/L Range Note CBC Auto Diff 10/14/2017 [facility] White Blood 8.7 10^3/uL 3.5-10.[address] [place], [place] [id number] [phone] Red Blood Count 4.41 10^6/uL 4.00-5.40 Hemoglobin 13.5 g/dL 12.0-16.0 Hematocrit 40 % 35-47 Mean Corpuscular Volume 90 fL 80-97 Mean Corpuscular Hemoglobin 31 pg 27-31 Mean Corpuscular HGB Conc 34 g/dL 31-36 Red Cell Distribution Width 13 % 10.5-15 Platelet Count 399 10^3/uL 150-450 Mean Platelet Volume 8.0 um3 7.4-10.4 Abs Neutrophils 5.0 10^3/uL 1.5-7.7 Abs Lymphocytes 2.7 10^3/uL 1.0-4.8 Abs Monocytes 0.6 10^3/uL 0-0.8 Abs Eosinophils 0.4 10^3/uL 0-0.6 Abs Basophils 0.1 10^3/uL 0-0.2 Abs Nucleated RBC 0 10^3/uL Granulocyte % 57.2 % 38-83 Lymphocyte % 31.0 % 25-47 Monocyte % 6.6 % 0-7 Eosinophil % 4.4 % 0-6 Basophil % 0.8 % 0-2 Nucleated Red Blood Cells % 0 Comp Metabolic Panel 10/14/2017 [facility] Sodium 136 mmol/L [phone] [place] [address] [phone] Potassium 3.6 mmol/L 3.5-5.0 Chloride 105 mmol/L 101-111 Co2 Carbon Dioxide 24 mmol/L 22-32 Anion Gap 7 mmol/L 2-11 Glucose 84 mg/dL 70-100 Blood Urea Nitrogen 14 mg/dL 6-24 Creatinine 0.70 mg/dL 0.51-0.95 BUN/Creatinine Ratio 20.0 8-20 Calcium 8.8 mg/dL 8.6-10.3 Total Protein 7.4 g/dL 6.4-8.9 Albumin 4.3 g/dL 3.2-5.2 Globulin 3.1 g/dL 2-4 Albumin/Globulin Ratio 1.4 1-3 Total Bilirubin 0.40 mg/dL 0.2-1.0 Alkaline Phosphatase 93 U/L 34-104 Alt 21 U/L 7-52 Ast 19 U/L 13-39 Egfr Non- 97.6 >60 Egfr 118.1 >60 1 Laboratory test 10/14/2017 [facility] Troponin I 0.00 ng/mL < 0.04 finding [address] [place] [address] [phone] HCG < 0.60 mIU/mL 2 Inr/Protime 10/14/2017 [facility] Inr 1.02 0.77-1.02 [facility] [place] [address] [phone] Laboratory test 10/14/2017 [facility] Activated 32.8 26.0- 36.3 finding [facility] hospital [facility] [place] [address] Thrombo Time [phone] Urinalysis 10/14/2017 [facility] Urine Color Yellow Profile [facility] [place] [address] [phone] Urine Appearance Clear Urine Specific Viola 1.009 Low 1.010-1.030 Urine pH 5.0 5-9 Urine Urobilinogen Negative Negative Urine Ketones Negative Negative Urine Protein Negative Negative Urine Leukocytes Trace Negative Urine Blood Negative Negative Urine Nitrite Negative Negative Urine Bilirubin Negative Negative Urine Glucose Negative Negative Urine White Blood Cell Trace(0-5/hpf) Absent Urine Red Blood Cell Trace(0-2/hpf) Absent Urine Bacteria Absent Absent Urine Squamous Epithelial Cell Present Absent Laboratory test 10/14/2017 [facility] TSH (Thyroid 2.61 0.34- 5.60 finding [facility] Stim Horm) mcIU/[place] [address] [phone] Urine Culture And 10/14/2017 [facility] Urine SEE RESULT 3 Sensitivities Critical access hospital [facility] [place] [address] [phone] Laboratory test 10/14/2017 [facility] Point of 91 mg/dL 70- 100 4 finding Critical access hospital [facility] [place] [address] [phone] 1 Because ethnic data is not always readily available, this report includes an eGFR for both -Americans and non- Americans. The National Kidney Disease Education Program (NKDEP) does not endorse the use of the MDRD equation for patients that are not between the ages of 18 and 70, are , have extremes of body size, muscle mass, or nutritional status, or are non- or non-. According to the National Kidney Foundation, irrespective of diagnosis, the stage of the disease is based on the level of kidney function: Stage Description GFR(mL/min/1.73 m(2)) 1 Kidney damage with normal or decreased GFR 90 2 Kidney damage with mild decrease in GFR 60-89 3 Moderate decrease in GFR 30-59 4 Severe decrease in GFR 15-29 5 Kidney failure <15 (or dialysis) 2 <5.0 Negative 5.0 - 25.0 Indeterminate (Repeat testing recommended after 72 hours) >25.0 Positive Perimenopausal women can display HCG levels of up to 20 mIU/mL 3 SEE RESULT BELOW Name: JASON JOHNSTON : [address]: Melida Spaulding DO Acct: [id number] Unit: [id number] AGE: 32 Location: [place] [address] Re10/15/17 Dis: 10/15/17 SEX: F Status: DIS [place] SPEC: [id number] NICHOLAS: 10/14/17-[address] [facility] [address]: Ace Pierson MD REQ: [id number] RECD: 10/14/17 STATUS: WINNIE LAZO DR: Bernard Decker MD _ SOURCE: URINE SPDESC: ORDERED: Urine Culture Procedure Result Reported Site Urine Culture Final 10/16/17- 825 ML No growth of clinically significant organisms * ML - Main Lab . END OF REPORT DEPARTMENT OF PATHOLOGY, [address] [place] [address] Raghu Marks M.D. 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
[2017-11-04 13:13] VITALS: BP 137/74
[2017-11-04] MEDS ORDERED: Fluorescein Sod TOPICAL 0.6* 0.6 MG TEST OPHTHALMIC ONE (13:15)
[2017-11-04] MEDS ORDERED: Tetracaine 0.5% OPTH.SOL 15ML* BTL ONE (13:16)
[2017-11-04] MEDS ORDERED: Tetracaine 0.5% OPTH.SOL 4 ML* 1 DROP BTL ONE (13:20)
--- NOTE | 2017-11-04 13:35 | ED ---
Throat Pain/Nasal Congestion - HPI Summary HPI Summary: 32 yr old female. She has no eye pain or recollection of injury to the eye. 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 The patient states her cat sleeps near her, and sometimes rubs side of her face, but patient doesn't recall getting rubbed or poked by cat claw. She has no pain in the eye. The patient noticed a red spot on the right lateral eye today and came to have her eye looked at. She has not been coughing or sneezing hard - History of Current Complaint Chief Complaint: UCEye Time Seen by Provider: 11/04/17 13:14 - Allergies/Home Medications Allergies/Adverse Reactions: Allergies Allergy/AdvReac Type Severity Reaction Status Date / Time sulfamethoxazole Allergy Hives Verified 11/04/17 12:57 [From Bactrim] trimethoprim [From Bactrim] Allergy Hives Verified 11/04/17 12:57 STEROID EYE DROPS Allergy Unknown CAUSED Uncoded 11/04/17 12:57 EYEPRESSURE TO GO UP, BLURRED VISION. Home Medications: Home Medications Acetaminophen [Pain Relief] 1,000 mg PO PRN 11/04/17 [History] Ibuprofen TAB* [Advil TAB*] 800 mg PO Q6H PRN 11/04/17 [History Confirmed ] PMH/Surg Hx/FS Hx/Imm Hx Endocrine/Hematology History: Denies: Hx Blood Transfusions, Hx Diabetes Cardiovascular History: Denies: Hx Auto Implanted Cardiovert Defib, Hx Cardiomegaly, Hx Deep Vein Thrombosis Respiratory History: Reports: Other Respiratory Problems/Disorders - Bronchitis Denies: Hx Chronic Obstructive Pulmonary Disease (COPD), Hx Pneumonia History: Denies: Hx Benign Prostatic Hyperplasia Sensory History: Denies: Hx Contacts or Glasses, Hx Legally Blind, Hx Deafness, Hx Hearing Aid Opthamlomology History: Denies: Hx Contacts or Glasses, Hx Legally Blind Psychiatric History: Reports: Hx Anxiety Denies: Hx [facility] Tx - Surgical History Surgery Procedure, Year, and Place: Lasik Feb 12, 2017 Infectious Disease History: Yes Infectious Disease History: Reports: Hx of Known/Suspected MRSA Denies: Traveled Outside the [place] in Last 30 Days - Family History Known Family History: Positive: Diabetes - Social History Occupation: Employed Full-time Alcohol Use: None Substance Use Type: Reports: None Smoking Status (MU): Never Smoked Tobacco Review of Systems Constitutional: Negative Positive: Other - no pain. Negative: Photophobia, Blurred Vision, Diplopia, Drainage All Other Systems Reviewed And Are Negative: Yes Physical Exam Triage Information Reviewed: Yes Vital Signs On Initial Exam: Initial Vitals Temp Pulse Resp BP Pulse Ox 98.4 F 78 20 137/74 98 11/04/17 13:00 11/04/17 13:00 11/04/17 13:00 11/04/17 13:00 11/04/17 13:00 Vital Signs Reviewed: Yes Appearance: Positive: Well-Appearing, No Pain Distress Skin: Positive: Warm, Skin Color Reflects Adequate Perfusion Head/Face: Positive: Normal Head/Face Inspection Eyes: Positive: EOMI, MUMTAZ, Other: - under wood lamp and with flourscein. No uptate of any flouroscein on the cornea or over sclera. She has a small subconjunctival hemmorhage present over the lateral right eye.. Negative: Conjunctiva Inflammed, Discharge ENT: Positive: Pharynx normal. Negative: Nasal congestion, Nasal drainage Respiratory/Lung Sounds: Positive: Other - normal effort Cardiovascular: Positive: Pulses are Symmetrical in both Upper and Lower Extremities Abdomen Description: Negative: Distended Musculoskeletal: Positive: Strength/ROM Intact Neurological: Positive: Sensory/Motor Intact, Alert, Oriented to Person Place, Time, CN Intact II-III Psychiatric: Positive: Normal - [place] Coma Scale Best Eye Response: 4 - Spontaneous Best Motor Response: 6 - Obeys Commands Best Verbal Response: 5 - Oriented Coma Scale Total: 15 Diagnostics - Vital Signs Vital Signs Temp Pulse Resp BP Pulse Ox 11/04/17 13:00 98.4 F 78 20 137/74 98 - Laboratory Lab Statement: Any lab studies that have been ordered have been reviewed, and results considered in the medical decision making process. EENT Course/Dx - Course Course Of Treatment: 32 yr old with subconjuntival hemmorhage. Plan DC home. FU with referral to Optho. No evidence of scratch or laceration to the sclera right eye. - Diagnoses Provider Diagnoses: Subconjunctival hemorrhage of right eye Discharge - Sign-Out/Discharge Documenting (check all that apply): Patient Departure All imaging exams completed and their final reports reviewed: No Studies - Discharge Plan Condition: Good Disposition: HOME Patient Education Materials: Subconjunctival Hemorrhage (ED) Referrals: Bernard Decker MD [Primary Care Provider] - 2 Days Virginia Spence MD [Medical Doctor] - 2 Days - Billing Disposition and Condition Condition: GOOD Disposition: Home
== END 2017-11-04 14:03 | disposition home or self-care (01) ==
LOC: UCCORT 12:39
DX: H11.31 Conjunctival hemorrhage, right eye (principal); Z88.1 Allergy status to other antibiotic agents
CPT/HCPCS: 99212; A9270-GY; G0463

== ENCOUNTER 2018-01-30 17:13 | Emergency (ER) | payer BC ==
--- OUTSIDE RECORDS SUMMARY | 2018-01-30 17:31 | XMS REPORT | Continuity of Care Document ---
:1985 External Reference #:[id number] Author Name Crystal Mello Care Team Providers Name Role Phone Bernard Decker MD Primary Care Physician Unavailable Payers Type Date Identification Numbers Payment Provider Subscriber Policy Number: [id number] [facility] Laura Johnston PayID: [id number] [address] [address] [place] [address] Advance Directives Description No Information Available Problems Date Description Provider Status Onset: Anxiety Active Onset: Transient cerebral ischemia Active Onset: Patient encounter status Active Onset: Blurring of visual image Active Onset: Obesity Active Onset: 11/24/2017 Aphasia Gunnar Faust MD Active Family History Date Family Member(s) Problem(s) Comments Father Hypertension Father Hypercholesterolemia Father Glaucoma Father trigeminal neuralgia Mother Hypercholesterolemia Mother Heart Disease bad heart valves Mother Heart Murmur Mother maternal grandfather-IA Mother maternal grandmother-IA Social History Type Date Description Comments Sex Unknown Marital Status Single Lives With Alone 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[employer]H Use Denies alcohol use Tobacco Use Start: Unknown Patient is a former social smoker from End: Unknown smoker [id number] Recreational Drug Use Denies Drug Use Smoking Status Reviewed: 01/15/18 Patient is a former social smoker from smoker [id number] Exercise Type/Frequency Exercises regularly elipitical -4 to 6 times per week and elenita chi Allergies, Adverse Reactions, Alerts Date Description Reaction Status Severity Comments 11/24/2017 Bactrim Urticaria Active Medications Medication Date Status Form Strength Qnty SIG Indications Ordering Provider Aspirin 81 Low 10/15/ Active Chewtabs 81mg 30unit Every Day Unknown Dose 2018 s Lipitor 10/15/ Active Tablets 20mg 30tabs Every Day Unknown 2018 Restasis 0000/ Active Emulsion 0.05% 2x daily Unknown 0000 Acetaminophen 00/ Active Tablets 500mg 2 by Unknown 0000 mouth as needed Cranberry / Active Capsules 2 by Unknown 0000 mouth every day Probiotic / Active Capsules 1 by Unknown 0000 mouth twice a day Betamethasone / Active as Unknown Dipropionate 0000 directed Skull Cap / Active liquid 1 Unknown 0000 dropper 1-2 times daily for anxiety Celexa / Active Tablets 10mg 1 by Unknown 0000 mouth every day Magnesium 00/ Active Tablets 250mg 1 by Unknown 0000 mouth every day Ibuprofen / Active Tablets 200mg 4 tabs by Unknown 0000 mouth as needed Doxycycline / Hx Tablets 100mg 1 by Unknown Hyclate 0000 - mouth 12/28/ twice a 2018 day x 21 days ( last day taken tonight 12/20/17) Lotemax / Hx Suspension 0.5% 2x a Unknown 0000 - daily 2017 Combigan / Hx Solution 0.2-0.5% 2x daily Unknown 0000 - 2017 Nystatin/Triamc / Hx Powder 829696Lbic topical Unknown inolone 0000 - /GM twice a 12/10/ day as 2018 needed Tylenol 8 Hour / Hx Tablets ER 650mg 1 tab Unknown 0000 - every 6 11/26/ hours as 2018 needed for pain Atorvastatin / Hx Tablets 20mg take 1 Unknown Calcium 0000 - tablet at 11/23/ bedtime 2018 Immunizations Description No Information Available Vital Signs Date Vital Result Comment 01/15/2018 10:48am Height 64.50 inches 5'4.50" Weight 303.00 lb Heart Rate 64 /min BP Systolic Sitting 122 mmHg LA Large Cuff BP Diastolic Sitting 90 mmHg LA Large Cuff BP Systolic Standing 134 mmHg LA Large Cuff BP Diastolic Standing 90 mmHg LA Large Cuff Respiratory Rate 16 /min Pain Level 0 O2 % BldC Oximetry 98 % BMI (Body Mass Index) 51.2 kg/m2 12/29/2017 2:13pm Height 64.50 inches 5'4.50" Weight 303.00 lb w/ shoes Heart Rate 74 /min BP Systolic Sitting 122 mmHg lue lg cuff BP Diastolic Sitting 62 mmHg lue lg cuff BMI (Body Mass Index) 51.2 kg/m2 Ejection Fraction 60-65% echo 10/23/17 12/11/2017 11:48am Height 64.50 inches 5'4.50" Weight 305.50 lb with shoes Heart Rate 60 /min BP Systolic 110 mmHg rue lg cuff BP Diastolic 80 mmHg rue lg cuff BP Systolic Sitting 114 mmHg lue lg cuff BP Diastolic Sitting 80 mmHg lue lg cuff BP Systolic Standing 118 mmHg BP Diastolic Standing 80 mmHg Respiratory Rate 16 /min BMI (Body Mass Index) 51.6 kg/m2 12/09/2017 8:39am Height 64.50 inches 5'4.50" Weight 306.38 lb Heart Rate 58 /min BP Systolic Sitting 112 mmHg BP Diastolic Sitting 64 mmHg Respiratory Rate 14 /min Body Temperature 97.7 F BMI (Body Mass Index) 51.8 kg/m2 11/27/2017 10:51am Height 64.50 inches 5'4.50" Weight 311.00 lb Heart Rate 60 /min reular BP Systolic 120 mmHg Ra Large Cuff BP Diastolic 90 mmHg Ra Large Cuff BP Systolic Sitting 122 mmHg LA Large Cuff BP Diastolic Sitting 84 mmHg LA Large Cuff BP Systolic Standing 116 mmHg LA Large Cuff BP Diastolic Standing 88 mmHg LA Large Cuff Respiratory Rate 20 /min Pain Level 4 head/neck/shoulders O2 % BldC Oximetry 97 % BMI (Body Mass Index) 52.6 kg/m2 11/24/2017 10:04am Height 66 inches 5'6" Weight 311.50 lb Heart Rate 76 /min BP Systolic 128 mmHg BP Diastolic 82 mmHg BMI (Body Mass Index) 50.3 kg/m2 Results Description No Information Available Procedures Date Code Description Status 01/11/2018 27867 Echocardiography, Transesophageal, Real Time W/Image 2D Completed W/W/O M-M 12/21/2017 30034 Implant Cardiac Loop Recorder Completed 12/11/2017 73461 EKG Tracing & Interpretation Completed 11/27/2017 03108 EKG Tracing & Interpretation Completed 10/15/2017 56604 Visual Evoked Potential Test OPTICAL INSTRUMENT SPECIALIST Completed 10/15/2017 34903 ECHO Transthorasic Realtime 2D W Doppler & Color Flow Hosp Completed 06/04/2017 95855 Echocardiography, Transesophageal, Real Time W/Image 2D Completed W/W/O M-M Encounters Type Date Location Provider Dx Diagnosis Office Visit 12/11/2017 [facility] Shawn D. G45.9 Transient cerebral 12:00p [facility] Young Yadav ischemic attack, unspecified Office Visit 12/09/2017 [facility] Clark Becker A69.20 Lyme disease, 8:30a Infectious Young Galvez unspecified Diseases Office Visit 11/27/2017 [facility] Emile Costello G45.9 Transient cerebral 11:00a [facility] MARY BETH Franco M.D. ischemic attack, [place] unspecified H53.8 Other visual disturbances R94.31 Abnormal electrocardiogram [ECG] [EKG] E66.9 Obesity, unspecified Office Visit 11/24/2017 9:45a [facility] Gunnar Faust, R47.01 Aphasia G45.9 Transient cerebral ischemic attack, unspecified H53.8 Other visual disturbances Office Visit 10/15/2017 2:06p [facility] H53.8 Other visual [facility]oc[facility] Agustin Spaulding disturbances Hospitalists R47.01 Aphasia Plan of Treatment Future Appointment(s):03/26/2018 11:30 am - Gunnar Faust MD at [facility]/15/2018 - Emile Franco M.D.G45.9 Transient cerebral ischemic attack, [id number] Obesity, [id number] Presence of other cardiac implants and graftsFollow up:4 months ov
[2018-01-30 17:40] VITALS: BP 117/86
--- NOTE | 2018-01-30 17:41 | UC ---
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 the cient also had bites around the same time. the hives have begun to go down except for an area on her right lower leg. - History of Current Complaint Time Seen by Provider: 01/30/18 17:29 Stated Complaint: RIGHT LEG RASH Hx Obtained From: Patient Hx Last Menstrual Period: 10/18/17 ?: No Onset/Duration: Sudden Onset, Lasting Days Skin Exposure Onset/Duration: Days Ago Timing: Constant Onset Severity: Mild Current Severity: Mild Location: Diffuse Character: Swelling, Redness Aggravating Factor(s): Touch Alleviating Factor(s): Nothing Associated Signs & Symptoms: Positive: Rash Related History: Insect Bite/Sting - Allergy/Home Medications Allergies/Adverse Reactions: Allergies Allergy/AdvReac Type Severity Reaction Status Date / Time sulfamethoxazole Allergy Hives Verified 01/30/18 17:37 [From Bactrim] trimethoprim [From Bactrim] Allergy Hives Verified 01/30/18 17:37 STEROID EYE DROPS Allergy Unknown CAUSED Uncoded 01/30/18 17:37 EYEPRESSURE TO GO UP, BLURRED VISION. Review of Systems All Other Systems Reviewed And Are Negative: Yes Constitutional: Positive: Negative Skin: Positive: Rash Eyes: Positive: Negative ENT: Positive: Negative Respiratory: Positive: Negative Cardiovascular: Positive: Negative Gastrointestinal: Positive: Negative Genitourinary: Positive: Negative Motor: Positive: Negative Neurovascular: Positive: Negative Musculoskeletal: Positive: Negative Neurological: Positive: Negative Is Patient Immunocompromised?: No PMH/Surg Hx/FS Hx/Imm Hx Previously Healthy: Yes - Surgical History Surgical History: Yes Surgery Procedure, Year, and Place: Lasik Feb 12, 2017 - Family History Known Family History: Positive: Diabetes - Social History Alcohol Use: None Substance Use Type: None Smoking Status (MU): Never Smoked Tobacco Physical Exam Triage Information Reviewed: Yes Appearance: Well-Appearing, No Pain Distress, Well-Nourished Vital Signs Reviewed: Yes Eye Exam: Normal ENT Exam: Normal Dental Exam: Normal Neck exam: Normal Neck: Positive: Supple, Nontender, No Lymphadenopathy Respiratory Exam: Normal Respiratory: Positive: Chest non-tender, Lungs clear, Normal breath sounds Cardiovascular Exam: Normal Cardiovascular: Positive: RRR, No Murmur, Pulses Normal Abdominal Exam: Normal Abdomen Description: Positive: Nontender, No Organomegaly, Soft Bowel Sounds: Positive: Present Musculoskeletal Exam: Normal Neurological Exam: Normal Psychological Exam: Normal Skin: Positive: Other - multiple insect bites on arema nd legs, reaised hive like area on right lower leg Course/Dx - Course Course Of Treatment: hx obtained, exam performed ,meds reviewed, topical steroid given for inflammation from bites - Differential Diagnoses - Skin Complaint Differential Diagnoses: Abscess, Cellulitis, Contact Dermatitis, Urticaria - Diagnoses Provider Diagnosis: Urticaria, Bed bug bite Discharge - Sign-Out/Discharge Documenting (check all that apply): Patient Departure All imaging exams completed and their final reports reviewed: Yes - Discharge Plan Condition: Stable Disposition: HOME Prescriptions: Betamethasone Dipropionate 1 applic TOPICAL SEE INSTRUCTIONS #1 cream..g. Patient Education Materials: Insect Bite or Sting (ED) Referrals: Bernard Decker MD [Primary Care Provider] - Additional Instructions: 1. use the cream as directed 2. Follow up with any worsening symtpoms - Billing Disposition and Condition Condition: STABLE Disposition: Home - Attestation Statements Provider Attestation: Per institutional requirements, I have reviewed the chart, however, I was not consulted specifically or made aware of this patient by the midlevel provider. I did not personally evaluate, interact with , or disposition this patient.
== END 2018-01-30 17:47 | disposition home or self-care (01) ==
LOC: UCCORT 17:13
DX: S40.862A Insect bite (nonvenomous) of left upper arm, initial encounter (principal); S40.861A Insect bite (nonvenomous) of right upper arm, initial encounter; S80.862A Insect bite (nonvenomous), left lower leg, initial encounter; S80.861A Insect bite (nonvenomous), right lower leg, initial encounter; W57.XXXA Bitten or stung by nonvenomous insect and other nonvenomous arthropods, initial encounter; Y92.009 Unspecified place in unspecified non-institutional (private) residence as the place of occurrence of the external cause; Y99.0 Civilian activity done for income or pay; Z88.1 Allergy status to other antibiotic agents; L50.9 Urticaria, unspecified
CPT/HCPCS: 99212; G0463